=== PATIENT | female | born 1975 | race Caucasian/White ===

== ENCOUNTER 2017-05-17 11:07 | Emergency (ER) | payer BC, OTHER ==
--- NOTE | 2017-05-17 11:51 | RAD ---
INDICATION: Right hand injury. TECHNIQUE: 4 views of the right hand were obtained. FINDINGS: There is soft tissue swelling present in the right index finger which is most prominent adjacent to the proximal phalanx. There appears to be a nondisplaced volar plate fracture present at the base of the middle phalanx of the index finger. No other fractures are seen. Joint spaces appear maintained. IMPRESSION: NONDISPLACED VOLAR PLATE FRACTURE BASE OF THE MIDDLE PHALANX OF THE INDEX FINGER.
[2017-05-17 12:00] VITALS: BP 127/77
--- NOTE | 2017-05-17 12:56 | UC ---
I, Oh,Soadrienne, scribed for Prince Amaya MD on 05/17/17 at 1232 . Upper Extremity HPI - HPI Summary HPI Summary: This 41 y/o female presents to [facility] for RUE #2 digit pain since yesterday. Pt was unhooking rope from horse yesterday when she possibly injured her finger. She is unsure how exactly she injured her digit. Positive swelling of the digit. PMHx includes depression. No other PMHx. Plan of care involving X-ray imaging results are discussed with pt, and she is agreeable. - History of Current Complaint Chief Complaint: UCUpperExtremity Stated Complaint: FINGER INJURY Time Seen by Provider: 05/17/17 11:23 Hx Obtained From: Patient, Medical Records Hx Last Menstrual Period: 05/14/2017 ?: No Onset/Duration: Lasting Days, Still Present Location Of Pain: Is Discrete @ - RUE #2 digit Aggravating Factor(s): Movement Alleviating Factor(s): Rest Associated Signs And Symptoms: Positive: Swelling - Allergies/Home Medications Allergies/Adverse Reactions: Allergies Allergy/AdvReac Type Severity Reaction Status Date / Time Amoxicillin Allergy Severe MOUTH Verified 05/17/17 11:51 [place], HOT FEELING, CHEST TIGHT Shellfish Allergy Allergy Severe MOUTH Verified 05/17/17 11:51 TINGLING, HOT FEELING, CHEST TIGHT Tetracyclines Allergy Severe Hives Verified 05/17/17 11:51 Prednisone Allergy Swelling Verified 05/17/17 11:51 Home Medications: Home Medications Bupropion XL (NF) [Wellbutrin XL (NF)] 300 mg PO DAILY 05/17/17 [History Confirmed 05/17/17] PMH/Surg Hx/FS Hx/Imm Hx Psychological History: Depression - Surgical History Surgical History: Yes Surgery Procedure, Year, and Place: wisdom teeth - Family History Known Family History: Negative: Cardiac Disease - Social History Alcohol Use: Weekly Substance Use Type: None Smoking Status (MU): Light Every Day Tobacco Smoker Amount Used/How Often: 1-3 cigs per day Have You Smoked in the Last Year: Yes When Did the Patient Quit Smoking/Using Tobacco: 18 mos ago but had a few recently - Immunization History Most Recent Influenza Vaccination: 2016 Most Recent Tetanus Shot: up to date Review of Systems Constitutional: Negative Skin: Negative Eyes: Negative ENT: Negative Respiratory: Negative Cardiovascular: Negative Gastrointestinal: Negative Genitourinary: Negative Motor: Negative Neurovascular: Negative Musculoskeletal: Other: - RUE #2 digit pain with swelling Neurological: Negative Psychological: Negative All Other Systems Reviewed And Are Negative: Yes Physical Exam Triage Information Reviewed: Yes Vital Signs: Initial Vital Signs Temp 98.6 F 05/17/17 11:54 Pulse 67 05/17/17 11:54 Resp 18 05/17/17 11:54 BP 127/77 05/17/17 11:54 Pulse Ox 99 05/17/17 11:54 Vital Signs Reviewed: Yes - Additional Comments The patient is well-nourished in no acute distress and in no acute pain. The skin is warm and dry and skin color reflects adequate perfusion. HEENT: The head is normocephalic and atraumatic. Abdomen: The abdomen is soft and non-tender. There are normal bowel sounds heard in all four quadrants and there is no organomegaly palpated. Musculoskeletal: There is good capillary refill. There is no peripheral edema or calf tenderness elicited. Tenderness at PIP joint of #2. No collateral ligament joint laxity. MCP joint tenderness. Decreased flexion of RUE #2. Able to extend. Neurological: Patient is alert and oriented to person, place and time. No decreased motor strength or sensation or RUE #2 digit Psychiatric: The patient has an appropriate affect and does not exhibit any anxiety or depression. Diagnostics - Radiology RUE Hand Xray Interpretation: Positive (See Comments) - NONDISPLACED VOLAR PLATE FRACTURE BASE OF THE MIDDLE PHALANX OF THE INDEX FINGER. Radiology Interpretation Completed By: Radiologist Re-Evaluation - Re-Evaluation First Eval Re-Evaluation Time: 12:29 Comment: Pt is updated with imaging results. Hard copies of official reports and X-ray images are provided to pt. Upper Extremity Course/Dx - Course Course Of Treatment: This 41 y/o female presents with RUE #2 digit pain and swelling since a day ago. Pt reports that she probably had her finger caught in rope when she was unhooking it off from tangled horse. X-ray reports nondisplaced volar fx. Pt was splinted, jaswant taped. Pt is instructed to keep injury iced and elevated. - Differential Dx/Diagnosis Differential Diagnosis/HQI/PQRI: Contusion, Fracture (Closed), Hematoma Provider Diagnoses: 1) finger fracture of Right hand #2 digit 2. volar plate fracture middle phalange base Discharge - Discharge Plan Condition: Stable Disposition: HOME Patient Education Materials: Finger Fracture (ED), Ice Pack Application (ED) Referrals: Nayely Masters MD [Primary Care Provider] - 2 Days [facility] [place] [Medical Doctor] - 2 Days Additional Instructions: Keep your finger iced and elevated. The documentation as recorded by the Jaycob islas Soohyun accurately reflects the service I personally performed and the decisions made by me, Prince Amaya MD.
== END 2017-05-17 12:40 | disposition home or self-care (01) ==
LOC: UCEAST 11:07
DX: S62.600A Fracture of unspecified phalanx of right index finger, initial encounter for closed fracture (principal); F32.9 Major depressive disorder, single episode, unspecified; X58.XXXA Exposure to other specified factors, initial encounter; Y93.K9 Activity, other involving animal care; Y92.9 Unspecified place or not applicable; Z88.0 Allergy status to penicillin
CPT/HCPCS: 99212; G0463